=== PATIENT | female | born 1945 | race Caucasian/White ===

== ENCOUNTER 2017-01-27 11:35 | Emergency (ER) | payer MEDICARE ==
--- NOTE | 2017-01-27 13:19 | ED ---
Extremity Problem HPI - General Chief complaint: Extremity Problem,Nontraumatic Stated complaint: left calf pain Time Seen by Provider: 01/27/17 12:16 Source: patient Mode of arrival: ambulatory Limitations: no limitations - History of Present Illness Initial comments: 71-year-old female with no reportable past medical history but states she has had bilateral bunionectomies presented for evaluation of left calf pain. She states the pain is been present for the last week and a half during which she has been much more sedentary than usual. She states that she has intact at work which is required to be at her computer longer than usual and she has not been able to workout. The left calf feels tender and tighter than the right one. She states she tried measuring it because it looked larger but she wasn't able to appreciate a difference. She is concerned about a DVT. She denies any shortness breath, chest pain, nausea, vomiting, fevers, chills, abdominal pain. There is no overlying erythema and she denies any distal changes in her neurovascular status including decreased sensation or motor function. - Related Data Home Medications Medication Instructions Recorded Confirmed Bilberry Extract 375mg 1,125 mg PO HS 01/27/17 01/27/17 Cholecalciferol [Vitamin D3] 1,000 unit PO HS 01/27/17 01/27/17 Destroxin 1 tab PO HS 01/27/17 01/27/17 Estradiol Compound Gel 1 applic TOPICAL HS 01/27/17 01/27/17 Infamatone 2 tab PO HS 01/27/17 01/27/17 Iodoral 1 tab PO HS 01/27/17 01/27/17 L.acidoph,Paracasei, B.lactis 1 cap PO HS 01/27/17 01/27/17 [Probiotic] Levothyroxine Sodium [Levoxyl] 100 mcg PO DAILY 01/27/17 01/27/17 [place] Supplement 1 tab PO HS 01/27/17 01/27/17 Lutein 40 mg PO HS 01/27/17 01/27/17 Multivitamins, Thera [Multivitamin 1 tab PO HS 01/27/17 01/27/17 (formulary)] [place]-3 Fatty Acids/Fish Oil [Fish 1 cap PO HS 01/27/17 01/27/17 Oil 1,000 mg Softgel] Prasterone (Dhea)/Calcium Carb 1 tab PO HS 01/27/17 01/27/17 [Dhea 10 mg Tablet] Progesterone, Micronized 100 mg PO HS 01/27/17 01/27/17 [Progesterone] Reganemax Plus 2 tab PO HS 01/27/17 01/27/17 Silymarin 250mg 250 mg PO HS 01/27/17 01/27/17 T3 10mg Slow Release Compound 1 cap PO HS 01/27/17 01/27/17 Capsule Tri-Kati Cream 1 applic TOPICAL HS 01/27/17 01/27/17 cycloSPORINE [Restasis] 1 drops BOTH EYES BID 01/27/17 01/27/17 Previous Rx's Medication Instructions Recorded Apixaban [Eliquis] 5 mg PO BID #72 tab 01/27/17 Allergies Allergy/AdvReac Type Severity Reaction Status Date / Time vikrell sutures Allergy Unknown Uncoded 01/27/17 14:29 Review of Systems ROS Statement: Those systems with pertinent positive or pertinent negative responses have been documented in the HPI. ROS Other: All systems not noted in ROS Statement are negative. Constitutional: Denies: fever, chills Eyes: Denies: eye pain, eye discharge ENT: Denies: ear pain, throat pain Respiratory: Denies: cough, dyspnea Cardiovascular: Denies: chest pain, palpitations Endocrine: Denies: fatigue, polydipsia Gastrointestinal: Denies: abdominal pain, nausea, vomiting Genitourinary: Denies: urgency, dysuria Musculoskeletal: Reports: other (Left calf pain with swelling). Denies: back pain, arthralgia Skin: Denies: rash, lesions Neurological: Denies: headache, weakness Psychiatric: Denies: anxiety, depression Hematological/Lymphatic: Denies: easy bleeding, easy bruising Past Medical History Past Medical History: No Reported History History of Any Multi-Drug Resistant Organisms: None Reported Additional Past Surgical History / Comment(s): 2 bunionectomies Smoking Status: Never smoker Past Alcohol Use History: None Reported Past Drug Use History: None Reported General Exam Limitations: no limitations General appearance: alert, in no apparent distress Head exam: Present: atraumatic, normocephalic, normal inspection Eye exam: Present: normal appearance, PERRL, EOMI. Absent: scleral icterus, conjunctival injection, periorbital swelling ENT exam: Present: normal exam, mucous membranes moist Neck exam: Present: normal inspection. Absent: tenderness, meningismus, lymphadenopathy Respiratory exam: Present: normal lung sounds bilaterally. Absent: respiratory distress, wheezes, rales, rhonchi, stridor Cardiovascular Exam: Present: regular rate, normal rhythm, normal heart sounds. Absent: systolic murmur, diastolic murmur, rubs, gallop, clicks GI/Abdominal exam: Present: soft, normal bowel sounds. Absent: distended, tenderness, guarding, rebound, rigid Rectal exam: Present: deferred Extremities exam: Present: full ROM, tenderness (Posterior knee), normal capillary refill, calf tenderness (Left calf which also feels tighter compared to the right. Gross examination does reveal looks larger than the right calf as well.), other (Pulses present throughout the left leg. Warm to palpation and patient is able to move through full range of motion. Capillary refill less than 2 seconds.). Absent: joint swelling Back exam: Present: normal inspection Neurological exam: Present: alert, oriented X3, CN II-XII intact Psychiatric exam: Present: normal affect, normal mood Skin exam: Present: warm, dry, intact, normal color. Absent: rash Course Vital Signs 01/27/17 01/27/17 01/27/17 11:40 14:21 15:04 Temperature 99.7 F H 98.2 F Pulse Rate 67 62 58 L Respiratory 16 16 15 Rate Blood Pressure 144/68 122/59 134/60 O2 Sat by Pulse 95 99 99 Oximetry Medical Decision Making - Medical Decision Making 71-year-old female with no significant past medical history presented for evaluation of left calf pain for the last week and half. She is presenting with concern for DVT. On physical examination she is neurovascularly intact distal to the calf with appropriate sensation, motor function, and pulses. Tenderness to the posterior left calf as well as the posterior left knee. Pulses are palpable up to the left groin. We'll obtain a lower extremity duplex. Lower extremity duplex showed a DVT to the left popliteal vein. The right leg showed no DVTs. The patient was reevaluated and had no change in physical exam. She was informed of these results and that she would be started on anticoagulation with Eliquis. She was given a coupon for 30 day free trauma and advised to follow-up with her primary care physician this week. She was given instructions on taking the Eliquis as far as the loading dose and the risk of taking this medication. There were no Indications to her starting on anticoagulation. She is further advised to return to this facility if her symptoms should worsen or persist. The patient acknowledged an understanding of this information and agreed with this plan of care. Disposition Clinical Impression: Deep vein thrombosis of lower extremity, Deep venous thrombosis of left popliteal vein Disposition: HOME SELF-CARE Condition: Stable Instructions: Apixaban (By mouth), Deep Venous Thrombosis (ED) Additional Instructions: Please use medication as discussed. Please follow up with family doctor if symptoms have not improved over the next two days. Please return to the emergency room if your symptoms increase or worsen or for any other concerns. Please take the Ellick was as 10 mg twice a day for 7 days and then 5 mg twice a day thereafter. He must follow-up with her primary care physician this week to determine the duration that he will be required to be on anticoagulation ( Eliquis). He will also be given referral for a vascular surgeon Dr. Parr and I recommend you make an appointment with him as well. Prescriptions: Apixaban [Eliquis] 5 mg PO BID #72 tab Referrals: None,Stated [Primary Care Provider] - 1-2 days Time of Disposition: 14:51
--- NOTE | 2017-01-27 14:20 | US ---
EXAMINATION TYPE: US venous doppler duplex LE DATE OF EXAM: 01/27/2017 1:18 PM COMPARISON: NONE CLINICAL HISTORY: Pain. Left calf pain. No swelling or redness. No hx of blood clots or on blood thi nners. Patient states has been sitting down a lot recently. SIDE PERFORMED: Left TECHNIQUE: The lower extremity deep venous system is examined utilizing real time linear array sonog tc with graded compression, doppler sonography and color-flow sonography. VESSELS IMAGED: External Iliac Vein (EIV) Common Femoral Vein Deep Femoral Vein Greater Saphenous Vein * Femoral Vein Popliteal Vein Small Saphenous Vein * Proximal Calf Veins (* superficial vessels) Right Leg: Appears negative for DVT. Cystic lesion with internal echoes seen posterior right knee = 5.4 x 2.9 x 2.2 cm Left Leg: Appears POSITIVE for DVT at mid popliteal vein. Compression deferred due to visible inter nal echoes. IMPRESSION: There is a right-sided popliteal cyst. No evidence of deep venous thrombosis on the right side. There is evidence of deep venous thrombosis in the left leg in the popliteal vein.
[2017-01-27 15:05] VITALS: BP 134/60; PULSE 58; RESP 15; TEMP 98.2
[2017-01-27] MEDS ORDERED: APIXABAN 5 MG TAB PO SCH (21:00)
== END 2017-01-27 15:09 | disposition home or self-care (01) ==
LOC: EC 11:35
DX: I82.432 Acute embolism and thrombosis of left popliteal vein (principal); Z79.52 Long term (current) use of systemic steroids; Z79.899 Other long term (current) drug therapy; Z91.09 Other allergy status, other than to drugs and biological substances
CPT/HCPCS: 93970; 99283

== ENCOUNTER → 2017-06-12 | Outpatient (CLI) | payer MEDICARE ==
--- NOTE | 2017-06-12 10:33 | US ---
EXAMINATION TYPE: US venous doppler duplex LE LT DATE OF EXAM: 06/12/2017 10:18 AM COMPARISON: Prior venous ultrasound bilaterally January 27, 2017 CLINICAL HISTORY: DVT Left Leg I82.402. HX of DVT in LLE. On blood thinners. SIDE PERFORMED: Left TECHNIQUE: The lower extremity deep venous system is examined utilizing real time linear array sonog tc with graded compression, doppler sonography and color-flow sonography. VESSELS IMAGED: External Iliac Vein (EIV) Common Femoral Vein Deep Femoral Vein Greater Saphenous Vein * Femoral Vein Popliteal Vein Small Saphenous Vein * Proximal Calf Veins (* superficial vessels) Left Leg: Appears NEGATIVE for DVT Interval resolution of thrombus at level of left popliteal vein noted.Grayscale, color doppler, spect ral doppler imaging performed of the deep veins of the left lower extremity on current study. There is normal flow, compressibility, vascular waveforms. IMPRESSION: Interval successful treatment of left-sided popliteal DVT. No acute or residual DVT curr ently.
== END | disposition home or self-care (01) ==
LOC: RADUSWWP 09:54
PROVIDERS: ATTEND Family Medicine
DX: Z09 Encounter for follow-up examination after completed treatment for conditions other than malignant neoplasm (principal); Z86.718 Personal history of other venous thrombosis and embolism